=== PATIENT | female | born 1990 | race Caucasian/White ===

== ENCOUNTER 2016-09-06 05:41 | Day surgery (SDC) | payer OTHER ==
[~2016-09-06] VITALS: Ht 157.5 cm; Wt 46.1 kg
[~2016-09-06 05:41] MED LIST: OMEP40CA6 PO; TYL500 PO
[2016-09-06 06:38] VITALS: Ht 157.5 cm; Wt 46.1 kg
[2016-09-06 06:58] VITALS: BP 94/63; PULSE 80; RESP 22
[2016-09-06] MEDS ORDERED: MIDAZOLAM 1 MG/ML 2 ML INJ ONE ×2 (07:41→07:42)
[2016-09-06] MEDS ORDERED: FENTAnyl 50 MCG/ML VIAL ONE (07:42)
[2016-09-06 08:18] VITALS: BP 96/61; PULSE 84; RESP 20
--- NOTE | 2016-09-06 09:54 | CONS ---
DATE OF ADMISSION: 09/06/2016 DATE OF CONSULTATION: TYPE OF CONSULTATION: Preoperative gastroenterology. I thank you very much for this kind referral. HISTORY OF PRESENT ILLNESS: Ms. Alma Rao is a 26-year-old female patient who has been refer red to me for further evaluation of upper abdominal pain and chronic heartburn not responding to the rapy. The patient is known to have had gastritis and gastroesophageal reflux disease. She is not t aking any nonsteroidal anti-inflammatory agents. Her appetite has been good, and she is not losing any weight. The patient says she had an abdominal ultrasound done and she was noted to have a polyp in the duodenum. There is no history of liver disease. The patient has history of chronic diarrhe a and rectal bleeding. The patient had colonoscopy done 3 years ago, and no colitis was identified. The patient was noted to have internal hemorrhoids. She is not a hypertensive or diabetic. She d oes not have any heart disease or lung problem. There is no history of kidney disease. SOCIAL HISTORY: She is a nonsmoker. She does not abuse alcohol. FAMILY HISTORY: Particular for the history of gastric cancer in her grandmother. ALLERGIES: THERE IS NO HISTORY OF SIGNIFICANT DRUG ALLERGY. MEDICATIONS: None. PHYSICAL EXAMINATION: GENERAL: She is 5 feet 2 inches tall, and she weighs 105 pounds. HEART: Normal first and second heart sounds. LUNGS: Clear. ABDOMEN: Soft without any distention. Liver and spleen are not palpable. There are no masses. Th ere is no focal tenderness. Normal bowel sounds are heard. CENTRAL NERVOUS SYSTEM: Examination does not reveal any focal neurological deficit. IMPRESSION: 1. Upper abdominal pain not responding to therapy. 2. The patient had abdominal ultrasound, and she was noted to have polyp in the gallbladder. 3. Gastroesophageal reflux disease. 4. History of diarrhea and rectal bleeding. 5. The patient had a colonoscopy 3 years ago, and she was noted to have hemorrhoids. Colon biopsy was negative for colitis. PLAN: Endoscopic examination for further evaluation. The patient will need followup of the gallbladder polyp by another ultrasound in 6 months. The procedure and possible complications are well explained to the patient. She understands and con sents to the procedure. I thank you once again. With warmest personal regards, Dictated By: MACI CHAND/SASHA Conf#: [id number] [facility]#: [id number]
--- NOTE | 2016-09-06 11:19 | GILP ---
DATE OF PROCEDURE: NAME OF PROCEDURES: Esophagogastroduodenoscopy and biopsy. SURGEON: Maci Daniel MD PREOPERATIVE DIAGNOSES: 1. Abdominal pain. 2. Chronic heartburn. POSTOPERATIVE DIAGNOSES: 1. Gastroesophageal reflux disease. 2. Gastritis with erosions. 3. Gastric mucosal biopsies were taken for Helicobacter pylori test. INDICATION FOR THE PROCEDURE: Ms. Alma Rao is a 26-year-old female patient who had upper ab dominal pain and chronic heartburn, not responding to therapy, so the patient was scheduled for endo scopic examination for further evaluation. The procedure and possible complications were well explained to the patient. The patient understood and consented to the procedure. DESCRIPTION OF PROCEDURE: Under the influence of fentanyl and Versed, the gastroscope was carefully introduced into the esophagus and under direct vision, it was advanced to the stomach and through t he pylorus into the duodenal bulb and descending duodenum. FINDINGS: ESOPHAGUS: The patient had gastroesophageal reflux disease. STOMACH: The patient was noted to have gastritis with erosions. Gastric mucosal biopsies were take n for H. pylori test. DUODENUM: Normal. The patient tolerated the procedure very well and there was no complication from the procedure. At the end of the procedure, she was awake with stable vital signs and she was discharged home to the [facility] of her family. IMPRESSION: 1. Gastroesophageal reflux disease. 2. Gastritis with erosions. 3. Gastric mucosal biopsies were taken for Helicobacter pylori test. PLAN: 1. Omeprazole 40 mg p.o. q.a.m. 2. Zantac 300 mg p.o. at bedtime. 3. Await H. pylori test report. Dictated By: MACI CHAND/SASHA Conf#: [id number] [facility]#: [id number]
== END 2016-09-06 12:01 | disposition home or self-care (01) ==
LOC: GIL 05:41
PROVIDERS: ATTEND Internal Medicine Gastroenterology
DX: K21.9 Gastro-esophageal reflux disease without esophagitis (principal); K29.60 Other gastritis without bleeding
CPT/HCPCS: 43239; 84703; 87081; J2250; J3010